=== PATIENT | female | born 1980 | race Caucasian/White ===

== ENCOUNTER 2023-05-28 07:27 | Day surgery (SDC) | payer MEDICAID ==
[~2023-05-28] VITALS: Ht 161.3 cm; Wt 108.6 kg
[2023-05-28] MEDS ORDERED: CLON-567 PO (07:42)
[2023-05-28] MEDS ORDERED: LAMO100T65 PO (07:42)
[2023-05-28] MEDS ORDERED: TRAZ-251 PO (07:42)
[2023-05-28] MEDS ORDERED: ARIP5TAB60 PO (07:42)
[2023-05-28 07:50] VITALS: BP 135/79; PULSE 70; RESP 18
[2023-05-28] MEDS ORDERED: LIDOcaine Viscous 15ml cup ONE (08:31)
[2023-05-28] MEDS ORDERED: MIDAZolam 1 MG/ML 5ML VIAL ONE (08:31)
[2023-05-28] MEDS ORDERED: fentaNYL/PF 50MCG/1 ML 2ML syringe ONE (08:31)
[2023-05-28 09:39] VITALS: BP 116/81; PULSE 65; RESP 16; O2SAT 99
[2023-05-28 09:49] VITALS: BP 129/83; PULSE 66; RESP 16; O2SAT 97
[2023-05-28 09:59] VITALS: BP 123/82; PULSE 66; RESP 17; O2SAT 96
[2023-05-28 10:09] VITALS: BP 123/82; PULSE 66; RESP 18; O2SAT 97
== END 2023-05-28 10:30 | disposition home or self-care (01) ==
LOC: GI LAB 07:27
PROVIDERS: ATTEND Internal Medicine Gastroenterology
DX: Z01.818 Encounter for other preprocedural examination (principal); K29.00 Acute gastritis without bleeding; E66.9 Obesity, unspecified; Z68.41 Body mass index [BMI] 40.0-44.9, adult; Z79.899 Other long term (current) drug therapy
CPT/HCPCS: 43239; 99152; J2250; J3010; J7030; Z7512; A4620